=== PATIENT | male | born 1955 | race Caucasian/White ===

== ENCOUNTER 2022-07-22 09:24 | Inpatient (IN) | payer OTHER ==
[~2022-07-22] VITALS: Ht 177.8 cm; Wt 95.2 kg
[~2022-07-22 09:24] MED LIST: ACET325 PO; ASPI81CH PO; Advil Pm Liqui1 EACH PO; CARV6.25 PO; FURO40 PO; GLIM2 PO; LORA10 PO; NASAL SPRAY30 ML NS; Prinivil10 MG PO
[2022-07-22 11:02] LABS: BASOPHILS ABSOLUTE AUTO 0.08 K/mm3 (0.00-0.23); BASOPHILS PERCENT AUTO 1 % (0-2); EOSINOPHILS ABSOLUTE AUTO 0.21 K/mm3 (0.00-0.68); EOSINOPHILS PERCENT AUTO 2 % (0-6); Hematocrit 22.6 % (37.0-53.0); Hemoglobin 7.6 g/dL (13.5-17.5); IMMATURE GRAN ABSOLUTE AUTO 0.15 K/mm3 (0.00-0.10); IMMATURE GRAN PERCENT AUTO 2 % (0-1); LYMPHOCYTES ABSOLUTE AUTO 1.15 K/mm3 (0.84-5.20); LYMPHOCYTES PERCENT AUTO 13 % (21-46); MONOCYTES ABSOLUTE AUTO 0.81 K/mm3 (0.16-1.47); MONOCYTES PERCENT AUTO 9 % (4-13); Mean Corpuscular HGB 31.9 pg (26.0-34.0); Mean Corpuscular HGB Conc 33.6 g/dL (31.5-36.5); Mean Corpuscular Volume 95 fL (80-100); Mean Platelet Volume 12.2 fL (9.1-12.4); NEUTROPHILS ABSOLUTE AUTO 6.51 K/mm3 (1.96-9.15); NEUTROPHILS PERCENT AUTO 73 % (41-73); Platelet Count 252 K/mm3 (150-400); RDW Coefficient Variation 13.6 % (11.7-14.2); Red Blood Cell Count 2.38 M/mm3 (4.30-5.90); White Blood Cell Count 8.91 K/mm3 (4.00-11.30)
[2022-07-22 11:23] LABS: Albumin, Blood 3.4 g/dL (3.4-5.0); Albumin/Globulin Ratio 1.1 (0.8-1.8); Bilirubin, Total 0.2 mg/dL (0.1-1.0); Bun/Creatinine Ratio 34.6 (12.0-20.0); Creatinine, Blood 2.14 mg/dL (0.60-1.20); Globulin, Blood 3.2 g/dL (2.2-4.0); Potassium, Blood 4.6 mmol/L (3.5-5.5); Total Protein, Blood 6.6 g/dL (6.4-8.2)
[2022-07-22 11:26] LABS: Calcium, Blood 13.6 mg/dL (8.5-10.1)
[2022-07-22 11:46] LABS: International Normalized Ratio 1.09; Prothrombin Time Results 11.4 Sec (9.7-11.5)
[2022-07-22 14:24] LABS: Percent Saturation 21.6 % (20.0-50.0)
[2022-07-22 15:33] LABS: Hematocrit 20.3 % (37.0-53.0); Hemoglobin 6.8 g/dL (13.5-17.5)
--- NOTE | 2022-07-22 18:22 | NUR ---
SHIFT SUMMARY- VSS. BG CRITICALLY LOW, DR NOTIFIED. A&O X4. PT STATED DOES NOT FEEL DIFFERENT WHEN BG LOW, CHATTING, LAUGHING, COHERENT. NPO FOR DR MARIE. WILL CONTINUE TO MONITOR. CALL LIGHT IN REACH. FAMILY AT BEDSIDE.
[2022-07-22 19:36] VITALS: BP 112/61
[2022-07-22 22:14] VITALS: BP 103/59
[2022-07-22 22:31] VITALS: BP 104/56
--- NOTE | 2022-07-22 22:39 | NUR ---
PT CBG HAS BEEN LOW SINCE SHIFT CHANGE. DIPPING WELL BELOW NORMAL PARAMETERS AND ONLY COMING UP TO LOW SIDE OF NORMAL AFTER D50 ADMINISTRATION AND PO JUICE INTAKE. D5W WITH NORMAL SALINE RUNNING SINCE 1800. HOSPITALIST DR. ESTRELLA NOTIFIED. DIRECTED TO ENTER ORDER FOR HYPOGLYCEMIA PROTOCOL FOR PRN D50 ADMINISTRATION. ORDERED HYPOGLYCEMIA PROTOCOL. DR. ESTRELLA SAID HE WOULD ENTER ORDER FOR NECESSARY MEDICATIONS. WILL CONTINUE TO MONITOR.
[2022-07-22 22:58] VITALS: BP 109/57
[2022-07-22 23:49] VITALS: BP 119/63
[2022-07-23] VITALS (67 sets, daily range): BP systolic 83–146; BP diastolic 44–87
[2022-07-23 01:59] LABS: BASOPHILS ABSOLUTE AUTO 0.04 K/mm3 (0.00-0.23); BASOPHILS PERCENT AUTO 1 % (0-2); EOSINOPHILS ABSOLUTE AUTO 0.23 K/mm3 (0.00-0.68); EOSINOPHILS PERCENT AUTO 3 % (0-6); Hematocrit 20.7 % (37.0-53.0); Hemoglobin 6.9 g/dL (13.5-17.5); IMMATURE GRAN ABSOLUTE AUTO 0.16 K/mm3 (0.00-0.10); IMMATURE GRAN PERCENT AUTO 2 % (0-1); LYMPHOCYTES ABSOLUTE AUTO 1.72 K/mm3 (0.84-5.20); LYMPHOCYTES PERCENT AUTO 20 % (21-46); MONOCYTES ABSOLUTE AUTO 0.95 K/mm3 (0.16-1.47); MONOCYTES PERCENT AUTO 11 % (4-13); Mean Corpuscular HGB 31.5 pg (26.0-34.0); Mean Corpuscular HGB Conc 33.3 g/dL (31.5-36.5); Mean Corpuscular Volume 95 fL (80-100); Mean Platelet Volume 11.4 fL (9.1-12.4); NEUTROPHILS ABSOLUTE AUTO 5.42 K/mm3 (1.96-9.15); NEUTROPHILS PERCENT AUTO 64 % (41-73); Platelet Count 183 K/mm3 (150-400); RDW Coefficient Variation 14.6 % (11.7-14.2); RDW Standard Deviation 49.7 fL (35.1-46.3); Red Blood Cell Count 2.19 M/mm3 (4.30-5.90); White Blood Cell Count 8.52 K/mm3 (4.00-11.30)
[2022-07-23 02:30] LABS: Albumin, Blood 2.7 g/dL (3.4-5.0); Bilirubin, Total 0.3 mg/dL (0.1-1.0); Bun/Creatinine Ratio 31.8 (12.0-20.0); Calcium, Blood 11.3 mg/dL (8.5-10.1); Creatinine, Blood 1.79 mg/dL (0.60-1.20); Globulin, Blood 2.7 g/dL (2.2-4.0); Potassium, Blood 4.5 mmol/L (3.5-5.5); Total Protein, Blood 5.4 g/dL (6.4-8.2)
--- NOTE | 2022-07-23 03:46 | NUR ---
ARRIVAL TO ICU 12 PT ARRIVED VIA MEDICAL BED WITH NURSE AT BEDSIDE. PT ABLE TO TRANSFER WITH ONE ASSIST TO ICU BED. D5WNS GTT AT 150ML/HR. CBG ON ARRIVAL 112. PT DENIES CHEST/ABD PAIN. C/O BEING COLD. WARM BLANKETS GIVEN. VSS. BP SOFT AT TIMES. MAP GREATER THAN 65. REPEAT H/H DRAWN AND SENT. RESULT OF 6.9 CALLED TO HOSP. ORDER FOR ONE UNIT PRBC TO BE ADMINISTERED. ONE HOUR AFTER ARRIVING CBG CHECKED AGAIN. RESULT OT 72 CALLED INTO HOSP AND ORDER RECEIVED FOR D10 GTT.
--- NOTE | 2022-07-23 05:34 | NUR ---
UPDATE CALL MADE TO HOSP REGARDING CBG OF 53. ORDER RECEIVED TO INCREASE D10 GTT TO 125ML/HR AND GIVE ONE AMP D50.
--- NOTE | 2022-07-23 06:06 | NUR ---
SHIFT SUMMARY PT CBG LABILE T/O NIGHT. [id number]. PT ASYMPTOMATIC. ONE AMP D50 GIVEN. D10 GTT 125ML/HR. ONE UNIT PRBC TRANSFUSED SINCE ARRIVAL TO ICU. VSS. ON RA. ONE ASSIST TO BRP FOR LINE MANAGEMENT. PT HAD ONE BM THIS SHIFT THAT THIS RN WAS UNABLE TO VISUALIZE. CONTINUES TO DENY ABD/CHEST PAIN. PT C/O FEELING COLD, WARM BLANKETS APPLIED AND ROOM TEMP TURNED UP. WILL REPORT OFF TO ONCOMING RN.
[2022-07-23 08:02] LABS: Hematocrit 21.7 % (37.0-53.0); Hemoglobin 7.5 g/dL (13.5-17.5)
--- NOTE | 2022-07-23 09:21 | NUR ---
CARE ASSUMPTION DURING BEDSIDE SHIFT REPORT W JEROD BOBO THE PT IS SITTING UPRIGHT IN BED AWAKE. PT IS ALERT AND ORIENTED COMMUNICATING APPROPRIATELY W STAFF. PT IS ON RM AIR W SPO2 >92%. MONITOR SHOWING A PACED RYTHYM IN THE 80'S. PT HAS D10 GTT RUNNING AT 125ML/HR. THE PT IS DENYING ANY PAIN OR NAUSEA AT THIS TIME. THE PT REPORTS JUST FEELING COLD, ADDITIONAL WARM BLANKETS PROVIDED. PT DENYING ANY FURTHER NEEDS AT THIS TIME.
--- NOTE | 2022-07-23 09:23 | NUR ---
UPDATE DR. JULIEN AT BEDSIDE ASSESSING PT. PROVIDER MADE AWARE OF PT'S H&H, CBG'S, AND CALCIUM LEVELS. NO NEW ORDERS GIVEN AT THIS TIME.
[2022-07-23] MEDS ORDERED: ENTRESTO 24 MG1 EACH PO (12:13)
[2022-07-23] MEDS ORDERED: XARELTO20 MG PO (12:13)
[2022-07-23] MEDS ORDERED: SPIR25 PO (12:13)
[2022-07-23] MEDS ORDERED: SITA100T2 PO (12:14)
[2022-07-23] MEDS ORDERED: PREG100 PO (12:15)
[2022-07-23] MEDS ORDERED: TRULICITY3 MG/0.5 M SC (12:17)
[2022-07-23] MEDS ORDERED: ZINC15 PO (12:18)
[2022-07-23] MEDS ORDERED: ERGO400 PO (12:19)
[2022-07-23] MEDS ORDERED: IVERMECTIN3 MG PO (12:20)
[2022-07-23] MEDS ORDERED: CITALOPRAM HBR10 MG PO (12:20)
[2022-07-23] MEDS ORDERED: PRAM.5 PO (12:21)
[2022-07-23] MEDS ORDERED: CHROMIUM400 MCG PO (12:22)
[2022-07-23] MEDS ORDERED: Folic Acid0.8 MG PO (12:22)
[2022-07-23] MEDS ORDERED: OMEP20ER PO (12:23)
[2022-07-23] MEDS ORDERED: MELATONIN 5 MG1 EACH PO (12:42)
--- NOTE | 2022-07-23 14:47 | NUR ---
07/23/22 1447 Delmi Acosta History, Chart, Medications and Allergies reviewed before start of procedure. 3-LEAD EKG REVIEWED WITH PHYSICIAN PRIOR TO START OF PROCEDURE. MONITOR INTACT WITH CONTINUOUS PULSE OXIMETRY, CONTINUOUS END TITAL CO2, AND INTERMITTENT BLOOD PRESSURE. PATIENT DETERMINED TO BE ASA APPROPRIATE FOR PROPOFOL SEDATION PRIOR TO START OF PROCEDURE BY , AFTER DR. WERNER AND DR. SEGOVIA ANESTHESIOLOGIST SPOKE.
--- NOTE | 2022-07-23 15:35 | NUR ---
UPDATE PT BACK FROM ENDOSCOPY. PT IS ALERT AND ORIENTED COMMUNICATING APPROPRIATELY W STAFF. PT ABLE TO STAND AND TRANSFER SELF FROM GURNEY TO BED W MINIMAL ASSISTANCE. VSS AND PT DENYING ANY PAIN OR NAUSEA. AT BEDSIDE.
--- NOTE | 2022-07-23 17:46 | NUR ---
DAY SHIFT SUMMARY PT IS ALERT AND ORIENTED COMMUNICATING APPROPRIATELY W STAFF. THE PT'S BLOOD GLUCOSE HAS BEEN WNL AND STABLE THIS SHIFT ON THE D10 GTT AT 125ML/HR FOR MOST OF THE DAY. D10 GTT TURNED DOWN TO 50ML/HR THIS AFTERNOON AND CBG'S REMAIN STABLE. MONITOR HAS SHOWN A V PACED RYTHYM IN THE 80'S ALL SHIFT. BP WNL AND STABLE. SPO2 >92% ON RM AIR. PT HAD EGD THIS SHIFT, PLAN FOR COLONOSCOPY IN THE AM BOWEL PREP STARTED. PT HAS HAD NO S/S OF BLEEDING THIS SHIFT. PT HAD ONE BM THIS SHIFT THAT WAS SOFT AND BROWN. PT HAS DENIED ANY NAUSEA THIS SHIFT. ONLY PAIN REPORTED WAS HIS NEUROPATHY IN HIS BLE'S, HOME DOSE LYRICA RESTARTED AND GIVEN THIS SHIFT. AT BEDSIDE FOR MUCH OF THE DAY. PT MOVING TO PCU 18 VIA WC W D10 RUNNING AT 50 ML/HR. REPORT GIVEN TO GENI BOBO.
--- NOTE | 2022-07-23 18:26 | NUR ---
PT ARRIVED FROM ICU AT 1800 A/O, DENIES PAIN. BOWEL PREP WITH GOLITELY STARTED UPON ARRIVAL TO ICU. OOB TO BATHROOM X1, HAS SOME URGENCY WITH URINATION AND LOOSE BM. BSC IN ROOM AND URINAL PROVIDED. ORIENTED TO ROOM AND UNIT. PT UPDATING FAMILY VIA PERSONAL CELL. PIV X1, SL. PG X1, D10 INFUSING AT 50ML/HR. PLANNED COLONOSCOPY IN AM. STEADY ON HIS FEET, AMBULATES WITH STANDBY ASSIST DUE TO LINES/CORDS. RN TO CONTINUE TO MONITOR
[2022-07-24] VITALS (26 sets, daily range): BP systolic 80–145; BP diastolic 55–102
[2022-07-24 03:46] LABS: BASOPHILS ABSOLUTE AUTO 0.05 K/mm3 (0.00-0.23); BASOPHILS PERCENT AUTO 1 % (0-2); EOSINOPHILS ABSOLUTE AUTO 0.29 K/mm3 (0.00-0.68); EOSINOPHILS PERCENT AUTO 4 % (0-6); Hemoglobin 7.9 g/dL (13.5-17.5); IMMATURE GRAN ABSOLUTE AUTO 0.09 K/mm3 (0.00-0.10); IMMATURE GRAN PERCENT AUTO 1 % (0-1); LYMPHOCYTES ABSOLUTE AUTO 1.99 K/mm3 (0.84-5.20); LYMPHOCYTES PERCENT AUTO 30 % (21-46); MONOCYTES PERCENT AUTO 12 % (4-13); Mean Corpuscular HGB 31.5 pg (26.0-34.0); Mean Corpuscular HGB Conc 34.3 g/dL (31.5-36.5); Mean Corpuscular Volume 92 fL (80-100); Mean Platelet Volume 11.2 fL (9.1-12.4); NEUTROPHILS ABSOLUTE AUTO 3.35 K/mm3 (1.96-9.15); NEUTROPHILS PERCENT AUTO 51 % (41-73); Platelet Count 164 K/mm3 (150-400); RDW Coefficient Variation 14.9 % (11.7-14.2); RDW Standard Deviation 48.3 fL (35.1-46.3); Red Blood Cell Count 2.51 M/mm3 (4.30-5.90); White Blood Cell Count 6.57 K/mm3 (4.00-11.30)
[2022-07-24 04:05] LABS: Bun/Creatinine Ratio 20.2 (12.0-20.0); Calcium, Blood 9.8 mg/dL (8.5-10.1); Creatinine, Blood 1.78 mg/dL (0.60-1.20); Potassium, Blood 4.6 mmol/L (3.5-5.5)
--- NOTE | 2022-07-24 06:43 | NUR ---
SUPERVISOR MODEL MAKING SUMMARY ASSUMED CARE OF THE PT AT 1900. HE IS ALERT AND ORIENTED X4, PLEASANT AND COOPERATIVE. PT HAS BEEN DRINKING GOLYTELY THROUGHOUT THE NIGHT BUT BMS ARE WATERY BUT BROWN IN COLOR. CBGS STABILIZED ON D10 DRIP AT 20 MLS/HR. HE IS SBA TO BATHROOM. PT APPEARS TACHYCARDIC WHEN ON THE TOILET. PT IS 100% PACED. VSS OTHERWISE.
--- NOTE | 2022-07-24 08:28 | NUR ---
PT UPDATE PT FINISHED BOWEL PREP. PT REPORTS LIQUID BROWN STOOL. CALL PLACED TO MD WERNER. MD WERNER W/ ORDERS FOR ANOTHER ROUND OF BOWEL PREP, CLEAR LIQUID BREAKFAST, NPO AFTER 1 PM.
--- NOTE | 2022-07-24 09:49 | NUR ---
PT UPDATE PT'S 3973 CB. D10 DRIP TITRATED FROM 20 MLS/HR TO 15 MLS/HR TO REGULATE CBG TO PARAMETERS, SEE EMAR.
--- NOTE | 2022-07-24 11:45 | NUR ---
PT UPDATE PT 1130 CBG 190. D10 GTT DECREASED FROM 15ML/HR TO 10MLS/HR TO GE CBG W/IN PARAMETERS OF ORDERS, SEE MAR
--- NOTE | 2022-07-24 15:14 | NUR ---
07/24/22 1514 Delmi Acosta History, Chart, Medications and Allergies reviewed before start of procedure. 3-LEAD EKG REVIEWED WITH PHYSICIAN PRIOR TO START OF PROCEDURE. MONITOR INTACT WITH CONTINUOUS PULSE OXIMETRY, CONTINUOUS END TITAL CO2, AND INTERMITTENT BLOOD PRESSURE. PATIENT DETERMINED TO BE ASA APPROPRIATE FOR PROPOFOL SEDATION PRIOR TO START OF PROCEDURE BY .
--- NOTE | 2022-07-24 16:05 | NUR ---
update this rn assumed care at this time
--- NOTE | 2022-07-24 16:06 | NUR ---
UPDATE THIS RN ASSUMING CARE ONCE PT BACK FROM DAY SURGERY. REPORT RECIEVED FORM JIHAN JOHNSTON
--- NOTE | 2022-07-24 16:45 | NUR ---
PT BACK FROM DAY SURGER AT THIS TIME. VSS.
--- NOTE | 2022-07-24 18:05 | NUR ---
SHIFT SUMMARY SEE RN NOTE FOR ASSUMPTION OF CARE. VSS POST COLONOSCOPY. PT ORERED DINNER TRAY PER GI MD ORDER. PT SBA TO BATHROOM NEEDED. NO SIGNS OF BLEEDING AT THIS TIME. FAMILY AT BEDSIDE WITH PT. THIS RN AGREES WITH PRIOR TRUCK AND TRANSPORT MECHANIC. D10 GTT AT 10 ML/HR. BLOOD SUGAR STABLE. CALL LIGHT WITHIN REACH. WILL CONT TO MONITOR UNTIL REPORT GIVEN TO NIGHTSHIFT RN.
[2022-07-25 04:06] VITALS: BP 102/81
[2022-07-25 04:22] LABS: BASOPHILS ABSOLUTE AUTO 0.03 K/mm3 (0.00-0.23); BASOPHILS PERCENT AUTO 1 % (0-2); EOSINOPHILS ABSOLUTE AUTO 0.26 K/mm3 (0.00-0.68); EOSINOPHILS PERCENT AUTO 4 % (0-6); Hematocrit 22.6 % (37.0-53.0); Hemoglobin 7.6 g/dL (13.5-17.5); IMMATURE GRAN ABSOLUTE AUTO 0.07 K/mm3 (0.00-0.10); IMMATURE GRAN PERCENT AUTO 1 % (0-1); LYMPHOCYTES ABSOLUTE AUTO 1.46 K/mm3 (0.84-5.20); LYMPHOCYTES PERCENT AUTO 25 % (21-46); MONOCYTES ABSOLUTE AUTO 0.74 K/mm3 (0.16-1.47); MONOCYTES PERCENT AUTO 13 % (4-13); Mean Corpuscular HGB 31.1 pg (26.0-34.0); Mean Corpuscular HGB Conc 33.6 g/dL (31.5-36.5); Mean Corpuscular Volume 93 fL (80-100); NEUTROPHILS ABSOLUTE AUTO 3.35 K/mm3 (1.96-9.15); NEUTROPHILS PERCENT AUTO 57 % (41-73); Platelet Count 173 K/mm3 (150-400); RDW Coefficient Variation 14.9 % (11.7-14.2); RDW Standard Deviation 48.6 fL (35.1-46.3); Red Blood Cell Count 2.44 M/mm3 (4.30-5.90); White Blood Cell Count 5.91 K/mm3 (4.00-11.30)
[2022-07-25 04:38] LABS: Calcium, Blood 9.1 mg/dL (8.5-10.1); Creatinine, Blood 1.71 mg/dL (0.60-1.20); Potassium, Blood 4.2 mmol/L (3.5-5.5)
--- NOTE | 2022-07-25 06:16 | NUR ---
PRINTED CIRCUIT BOARD LAYOUT DESIGNER SUMMARY ASSUMED CARE OF THE PT AT 1900. HE IS ALERT AND ORIENTED X4, PLEASANT AND COOPERATIVE. HE HAD ABOUT HALF OF HIS DINNER TRAY EATEN. D10 DRIP WAS TURNED OFF AT 2140 AND Q2 CBGS CONTINUED. PT HAS REMAINED IN THE 150S TO 160S THIS MORNING SINCE AROUND 0200. HE HAS NO OTHER COMPLAINTS. 100% PACED ON TELE BUT DOES JUMP UP INTO THE HIGH 100S WITH AMBULATION TO THE RESTROOM. VS OTHERWISE STABLE.
[2022-07-25 07:45] VITALS: BP 130/74
[2022-07-25 11:40] VITALS: BP 125/75
[2022-07-25 16:56] VITALS: BP 108/71
--- NOTE | 2022-07-25 18:26 | NUR ---
SHIFT SUMMARY: PT HAS BEEN A&Ox4, COOPERATIVE W/CARE, ANSWERS QUESTIONS APPROPRIATELY. O2 SATS >93% ON RA, PT DENIES SOB. TELEMETRY SHOWS 100% PACED, RATE 90s-110s, PT DENIES CHEST PAIN/PRESSURE. PT W/GOOD PO INTAKE TODAY. BLOOD GLUCOSE CHECKS PROGRESSED TO AC/HS. NO BM THIS SHIFT. PT SHOWERS INDEPENDENTLY. MEDICATION CHANGES IN PLACE THIS SHIFT, MONITORING PT OVERNIGHT, POTENTIAL DC TOMORROW. AT THIS TIME, PT IS RESTING QUIETLY IN ROOM WITH CALL LIGHT IN REACH. WILL CONTINUE TO MONITOR AND TREAT ACCORDINGLY UNTIL CHANGE OF SHIFT.
[2022-07-25 20:48] VITALS: BP 125/66
[2022-07-25 23:46] VITALS: BP 110/66
[2022-07-26 04:05] VITALS: BP 115/69
[2022-07-26 04:28] LABS: BASOPHILS ABSOLUTE AUTO 0.04 K/mm3 (0.00-0.23); BASOPHILS PERCENT AUTO 1 % (0-2); EOSINOPHILS ABSOLUTE AUTO 0.25 K/mm3 (0.00-0.68); EOSINOPHILS PERCENT AUTO 5 % (0-6); Hematocrit 23.3 % (37.0-53.0); Hemoglobin 7.8 g/dL (13.5-17.5); IMMATURE GRAN ABSOLUTE AUTO 0.04 K/mm3 (0.00-0.10); IMMATURE GRAN PERCENT AUTO 1 % (0-1); LYMPHOCYTES ABSOLUTE AUTO 1.28 K/mm3 (0.84-5.20); LYMPHOCYTES PERCENT AUTO 24 % (21-46); MONOCYTES ABSOLUTE AUTO 0.58 K/mm3 (0.16-1.47); MONOCYTES PERCENT AUTO 11 % (4-13); Mean Corpuscular HGB 31.5 pg (26.0-34.0); Mean Corpuscular HGB Conc 33.5 g/dL (31.5-36.5); Mean Corpuscular Volume 94 fL (80-100); Mean Platelet Volume 11.2 fL (9.1-12.4); NEUTROPHILS PERCENT AUTO 59 % (41-73); Platelet Count 178 K/mm3 (150-400); RDW Standard Deviation 49.1 fL (35.1-46.3); Red Blood Cell Count 2.48 M/mm3 (4.30-5.90); White Blood Cell Count 5.29 K/mm3 (4.00-11.30)
[2022-07-26 04:54] LABS: Bun/Creatinine Ratio 12.4 (12.0-20.0); Calcium, Blood 9.1 mg/dL (8.5-10.1); Creatinine, Blood 1.61 mg/dL (0.60-1.20)
--- NOTE | 2022-07-26 06:22 | NUR ---
SHIFT SUMMARY PATIENT ALERT AND ORIENTED X4, HAS BEEN INDEPENDENT IN HIS ROOM. SPO2 >90% ON ROOM AIR. VITAL SIGNS STABLE. PATIENT DENIES EXPERIENCING ANY CHEST PAIN OR SHORTNESS OF BREATH. PATIENT BECAME TACHYCARDIC WITH A BBB WHEN ACTIVE MAKING HIS BED THIS MORNING, THIS RESOLVED AFTER PATIENT LAID BACK DOWN AGAIN TO REST. WILL CONTINUE TO MONITOR. CALL LIGHT WITHIN REACH.
[2022-07-26 08:13] VITALS: BP 129/83
[2022-07-26 08:34] LABS: Percent Saturation 14.5 % (20.0-50.0)
--- NOTE | 2022-07-26 10:06 | NUR ---
PT RESTING COMFORTABLY IN BED WATCHING TV. DR. WILDER WAS IN TO SEE HIM AND WILL START WORKING ON DISCHARGE ORDERS. MED REC LIST VERIFIED.
--- NOTE | 2022-07-26 13:16 | NUR ---
DISCHARGE: PT HAS BEEN CLEARED FOR DISCHARGE HOME. ALL IV ACCESS DC'd WNL. PT DRESSES SELF. PT AND SPOUSE PROVIDED W/DC PAPERWORK AND INSTRUCTIONS, V/U. PT TO BE ASSISTED FROM UNIT VIA W/C.
[2022-07-26] MEDS ORDERED: Amaryl2 MG PO (13:38)
== END 2022-07-26 13:48 | disposition home or self-care (01) | DRG 378 ==
LOC: ER 09:24 → ICUW 13:19 → PCU 13:19 → MEDS 13:19 → ICUW 07-23 01:29 → PCU 07-23 17:53
PROVIDERS: Family Medicine; Internal Medicine; Student in an Organized Health Care Education/Training Program; ADMIT Internal Medicine
PROC: 30233N1 Transfusion of Nonautologous Red Blood Cells into Peripheral Vein, Percutaneous Approach (ICD-10-PCS; principal; 2022-07-22)
PROC: 30233N1 Transfusion of Nonautologous Red Blood Cells into Peripheral Vein, Percutaneous Approach (ICD-10-PCS; 2022-07-23)
PROC: 0DJ08ZZ Inspection of Upper Intestinal Tract, Via Natural or Artificial Opening Endoscopic (ICD-10-PCS; 2022-07-23)
PROC: 0DJD8ZZ Inspection of Lower Intestinal Tract, Via Natural or Artificial Opening Endoscopic (ICD-10-PCS; 2022-07-24)
DX: K31.82 Dieulafoy lesion (hemorrhagic) of stomach and duodenum (principal); D62 Acute posthemorrhagic anemia; K92.1 Melena; D68.61 Antiphospholipid syndrome; N17.9 Acute kidney failure, unspecified; I50.22 Chronic systolic (congestive) heart failure; Z68.1 Body mass index [BMI] 19.9 or less, adult; K29.70 Gastritis, unspecified, without bleeding; K57.30 Diverticulosis of large intestine without perforation or abscess without bleeding; E11.649 Type 2 diabetes mellitus with hypoglycemia without coma; N20.0 Calculus of kidney; K63.5 Polyp of colon; F32.A Depression, unspecified; K64.8 Other hemorrhoids; E11.42 Type 2 diabetes mellitus with diabetic polyneuropathy; E83.52 Hypercalcemia; E66.9 Obesity, unspecified; G89.29 Other chronic pain; K44.9 Diaphragmatic hernia without obstruction or gangrene; E11.22 Type 2 diabetes mellitus with diabetic chronic kidney disease; N18.30 Chronic kidney disease, stage 3 unspecified; M54.50 Low back pain, unspecified; M48.00 Spinal stenosis, site unspecified; M47.9 Spondylosis, unspecified; Z68.30 Body mass index [BMI] 30.0-30.9, adult; Z98.890 Other specified postprocedural states; Z88.1 Allergy status to other antibiotic agents; Z79.01 Long term (current) use of anticoagulants; Z79.82 Long term (current) use of aspirin; Z79.899 Other long term (current) drug therapy
CPT/HCPCS: 36415; 36430; 80048; 80053; 82272; 82330; 82607; 82652; 82728; 82746; 82947; 83540; 83550; 83970; 84100; 85014; 85018; 85025; 85610; 86850; 86900; 86901; 86923; 93005; 93010; 99285-25; A9270; C1751; C9113; J0171; J1815; J2250; J2704; J7030; J7042; J7050; J7120; P9016

== ENCOUNTER → 2022-10-19 | Outpatient (CLI) | payer OTHER ==
[~2022-10-19] MED LIST changes: +Amaryl2 MG PO; +CHROMIUM400 MCG PO; +CITALOPRAM HBR10 MG PO; +ENTRESTO 24 MG1 EACH PO; +ERGO400 PO; +Folic Acid0.8 MG PO; +IVERMECTIN3 MG PO; +MELATONIN 5 MG1 EACH PO; +OMEP20ER PO; +PRAM.5 PO; +PREG100 PO; +SITA100T2 PO; +SPIR25 PO; +TRULICITY3 MG/0.5 M SC; +XARELTO20 MG PO; +ZINC15 PO
[2022-10-19 19:49] LABS: Hematocrit 42.6 % (37.0-53.0); Hemoglobin 14.1 g/dL (13.5-17.5); Mean Corpuscular HGB 29.3 pg (26.0-34.0); Mean Corpuscular HGB Conc 33.1 g/dL (31.5-36.5); Mean Corpuscular Volume 88 fL (80-100); Mean Platelet Volume 11.9 fL (9.1-12.4); Platelet Count 273 K/mm3 (150-400); RDW Coefficient Variation 14.9 % (11.7-14.2); RDW Standard Deviation 48.6 fL (35.1-46.3); Red Blood Cell Count 4.82 M/mm3 (4.30-5.90)
[2022-10-19 20:19] LABS: Albumin, Blood 3.9 g/dL (3.4-5.0); Bilirubin, Total 0.6 mg/dL (0.1-1.0); Bun/Creatinine Ratio 22.6 (12.0-20.0); Calcium, Blood 9.7 mg/dL (8.5-10.1); Creatinine, Blood 1.59 mg/dL (0.60-1.20); Globulin, Blood 4.1 g/dL (2.2-4.0)
== END ==
LOC: LAB SHORT 14:45 → LAB 14:45
PROVIDERS: Family Medicine
DX: E11.9 Type 2 diabetes mellitus without complications (principal); I11.0 Hypertensive heart disease with heart failure; E78.2 Mixed hyperlipidemia; D64.9 Anemia, unspecified; I50.9 Heart failure, unspecified
CPT/HCPCS: 80053; 83036; 85027

== ENCOUNTER 2023-04-18 06:20 | Day surgery (SDC) | payer OTHER ==
[~2023-04-18] VITALS: Ht 177.8 cm; Wt 100.0 kg
[~2023-04-18 06:20] MED LIST changes: +ALDACTONE25 MG PO; +Aspir 8181 MG PO; +CHROMIUM PICOLINATE PO; +Celexa20 MG PO; +FURO20 PO; +INSULANPEN SC; +JARDIANCE10 MG PO; +MELATONIN5 M1 PO; +TRULICITY1.5 MG/0.1 SC; +VIT K2 PO; +VITAMIN B COMPLEX PO; +VITAMIN D3 PO
[2023-04-18] MEDS ORDERED: CeFAZolin Sodium 1000 mg Vial ONE (06:46)
[2023-04-18] MEDS ORDERED: NS 1,000 ML IV ONE (06:47)
[2023-04-18] MEDS ORDERED: Heparin Sodium 1000 Units/ML 10ML MDV ONE (06:47)
[2023-04-18] MEDS ORDERED: Vancomycin HCL 1,500 MG in NS 250 ML IV ONE (06:55)
[2023-04-18] MEDS ORDERED: B COMPLEX FORM0.4 MG PO (06:58)
[2023-04-18] MEDS ORDERED: K-RIGHT SOFTGE1 EACH PO (06:59)
[2023-04-18 07:01] VITALS: BP 121/70
[2023-04-18] MEDS ORDERED: NS 500 ML IV ONE ×2 (07:05→07:41)
[2023-04-18] MEDS ORDERED: Vancomycin HCl 1000 MG ADDvantage ONE (07:05)
[2023-04-18] MEDS ORDERED: Midazolam HCl 1MG / ML 2ML Vial ONE (07:40)
[2023-04-18] MEDS ORDERED: FentaNYL Citrate 50 MCG/ML 2 ML Injection ONE (07:41)
[2023-04-18 09:10] VITALS: BP 108/69
--- NOTE | 2023-04-18 09:14 | NUR ---
PT RETURNED TO RECOVERY ROOM AT 0905 IN RECLINER. LACW BiV[employer] CHANGE-OUT SITE SOFT NON-TENDER WITH NO HEMATOMA, NO BLEEDING AND INTACT DRESSING. PT DENIES CHEST PAIN. PT'S IN ROOM CALL LIGHT IN REACH. PT EATING BREAKFAST.
[2023-04-18 09:26] VITALS: BP 109/62
[2023-04-18] MEDS ORDERED: CEPHALEXIN500 MG PO (09:30)
[2023-04-18 09:51] VITALS: BP 109/61
--- NOTE | 2023-04-18 10:09 | NUR ---
DISCHARGE INSTRUCTIONS REVIEWED ALL QUESTIONS ANSWERED. NO CHANGES TO LACW SITE. 20 G IV DISCONTINUED FROM LEFT AC WITH INTACT CANNULA. PT ESCORTED OUT VIA WHEELCHAIR ESCORT.
== END 2023-04-18 10:00 | disposition home or self-care (01) ==
LOC: MHTC 06:20
DX: Z45.02 Encounter for adjustment and management of automatic implantable cardiac defibrillator (principal); I44.7 Left bundle-branch block, unspecified; I42.9 Cardiomyopathy, unspecified; E78.5 Hyperlipidemia, unspecified; I50.9 Heart failure, unspecified; E11.40 Type 2 diabetes mellitus with diabetic neuropathy, unspecified; Z79.82 Long term (current) use of aspirin; N18.9 Chronic kidney disease, unspecified; E11.22 Type 2 diabetes mellitus with diabetic chronic kidney disease; E66.9 Obesity, unspecified; I13.0 Hypertensive heart and chronic kidney disease with heart failure and stage 1 through stage 4 chronic kidney disease, or unspecified chronic kidney disease; Z68.31 Body mass index [BMI] 31.0-31.9, adult
CPT/HCPCS: 33229; 82947; 99152; 99153; C1781; J0690; J1644; J2250; J3010; J3370; J7040; J7050